=== PATIENT | male | born 1965 | race Caucasian/White ===

== ENCOUNTER 2020-12-31 23:00 | Emergency (ER) | payer OTHER, SELFPAY ==
--- NOTE | ~2020-12-31 | CT_ITS ---
EXAMINATION: CT abdomen pelvis wo con DATE: 01/01/2021 00:08 INDICATION: Scrotal swelling, abdominal pain TECHNIQUE: Computed tomography (CT) of the abdomen and pelvis was performed without intravenous contr ast. Automated exposure control and iterative reconstruction technique were employed. Exam dose: 759 .69 mGy-cm total exam DLP. COMPARISON: None. FINDINGS: There is bibasilar discoid atelectasis and/or scarring. Normal heart size. No pericardial or pleural effusion. The gallbladder is distended. No gallbladder wall thickening or pericholecystic fluid or fat strandin g. No bile duct or pancreatic duct dilatation. No hepatic, pancreatic, splenic, and adrenal or renal space-occupying mass lesion is detected. Normal caliber of the abdominal aorta. There are shotty nonenlarged periaortic and aortocaval lymph nodes. There is a 6.5 mm appendicolith at the base of the appendix but the appendix is not dilated, there is no thickening of the wall of the appendix and there is no surrounding periappendiceal thickening or fluid. There is minimal diverticulosis of the colon. No CT evidence of diverticulitis. The prostate gland and urinary bladder and seminal vesicles are unremarkable. No bowel obstruction, bowel wall thickening, pneumatosis or intraperitoneal free air. There is prominent soft tissue thickening of the scrotum, penis, subcutaneous fat soft tissue/edema i nfiltration throughout the scrotum. There is extensive subcutaneous emphysema of the right scrotal sa c, extending into the right perineum. There is subcutaneous fat soft tissue/edema infiltration of the medial right buttock fat. Subcutaneous edema extends into the suprapubic area. 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 There is a recent displaced posterolateral right ninth and 10th rib fractures. Degenerative spurring of the lower thoracic spine. No suspicious osteolytic or osteoblastic lesions a re noted. IMPRESSION: Jenny's gangrene, including subcutaneous emphysema involving the right scrotal and pe rineal areas, extensive soft tissue thickening and subcutaneous edema of the scrotum, penis, extendin g into the right perineum and right buttock Appendicolith at base of appendix without additional evidence for appendicitis Minimal diverticulosis of the colon; no CT evidence of diverticulitis Reviewed, dictated and finalized at [facility] Reviewed, dictated and finalized at [facility]. IMPRESSION: Jenny's gangrene, including subcutaneous emphysema involving th e right scrotal and perineal areas, extensive soft tissue thickening and subcut aneous edema of the scrotum, penis, extending into the right perineum and right buttock Appendicolith at base of appendix without additional evidence for appendicitis Minimal diverticulosis of the colon; no CT evidence of diverticulitis
[2020-12-31 23:08] VITALS: BP 74/47; PULSE 120; RESP 20; TEMP 35.9; O2SAT 100
[2020-12-31 23:28] VITALS: BP 80/59; PULSE 113; RESP 22; O2SAT 98
[2020-12-31 23:31] VITALS: PULSE 110; RESP 23
--- NOTE | 2020-12-31 23:45 | ED.FEVER ---
HPI - Fever General Chief Complaint: Fever Stated Complaint: fever Time Seen by Provider: 12/31/20 23:32 Source: RN notes reviewed History of Present Illness HPI Narrative: Patient presents to emergency department from home for fever. Patient states he began to run a fever approximately 6 days ago. States temperatures up the 103. He states that he also noticed approximately 4 days ago he was having swelling of his scrotum as well as a hemorrhoid in his buttocks he states that these are progressively worsened with some drainage down by his scrotum patient states he went to urgent care today at [place] and was placed on 2 antibiotics which he has not filled yet he denies any chest pain shortness of breath. He denies any history of diabetes Related Data Home Medications Medication Instructions Recorded Confirmed colchicine 0.6 mg tablet 0.6 mg PO DAILY PRN 03/10/20 11/22/20 Allergies Allergy/AdvReac Type Severity Reaction Status Date / Time No Known Allergies Allergy Verified 12/31/20 23:30 Review of Systems Review of Systems: Gen.: Reports fever Eyes: Denies eye pain or visual change ENT: Denies congestion Respiratory: Denies shortness of breath or cough CV: Denies chest pain or palpitations GI: Reports lower abdominal pain and rectal pain reports scrotal swelling and erythema Musculoskeletal: Denies back pain or muscle pain Neuro: Denies numbness, tingling, weakness or focal weakness Skin: Denies rash Except as documented, all other systems reviewed and negative [facility] Past Medical History Medical History Allergies Erectile dysfunction Gout High blood cholesterol HTN (hypertension) Osteoporosis Surgical History Surgical History H/O wrist surgery right wrist History of ankle surgery left ankle Lower extremity surgery planned left tibia Family History Family History Mother Family history of glaucoma Hypertension Grandparent Family history of Parkinson's disease Father Family history of lung cancer, Onset Age: 62 Grandparent Diabetes mellitus Hypertension Grandparent Dementia Heart disease Other Family history of malignant neoplasm Social History Social History Smoking status: Light tobacco smoker Alcohol intake: current Exam Narrative: APPEARANCE: No acute distress, nontoxic, resting in bed EYES: EOMI HEENT: Normocephalic, atraumatic, OMM RESPIRATORY: No respiratory distress Clear to auscultation bilaterally with no rhonchi wheezing or rales. CARDIOVASCULAR: Regular rate and rhythm without murmurs rubs or gallops. ABDOMINAL: Soft, nondistended, tender palpation right lower quadrant left lower quadrant no tenderness right upper quadrant left upper quadrant no rebound or guarding, periumbilical hernia that is soft and easily reducible Rectum: Erythema around the rectum extending to the perineum area with open wound draining purulent material : Extensive swelling and erythema of the scrotum extending down into the perineum area with open wounds but tests MUSCULOSKELETAl: Moves all extremities. No clubbing, cyanosis or edema. NEURO: Awake and alert. Following commands, speech normal, no focal deficits SKIN:: Warm, dry. 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 Marcano for urology at [facility] agrees with plan for transfer and recommends transfer to the ED with patient to go to the OR tonight in agreement with clindamycin vancomycin Discuss
[2020-12-31 23:47] VITALS: PULSE 112
--- NOTE | 2020-12-31 23:51 | PC.NURSE ---
Patient taken to CT via stretcher.
[2020-12-31 23:57] LABS: Estimated CRCL calculation 11 ml/min; Estimated Glomerular Filt Rate 7
[2021-01-01] VITALS (11 sets, daily range): BP systolic 94–120; BP diastolic 59–84; PULSE 103–112; RESP 20–24; TEMP 37.1; O2SAT 98–100
[2021-01-01] LABS: Hematocrit 38.9 % (42.0-52.0); Hemoglobin 13.1 g/dL (14.0-18.0); Mean Corpuscular HGB Conc 33.7 g/dl (32-36); Mean Corpuscular Hemoglobin 30.9 pg (26-34); Mean Corpuscular Volume 91.7 fl (80-100); Mean Platelet Volume 10.5 fl (7.4-10.4); Platelet Count Result 352 k/mm3 (150-375); Red Blood Count 4.24 M/mm3 (4.6-6.20); Red Cell Distribution Width 13.6 % (11.5-14.5); White Blood Count 20.2 K/mm3 (4.5-10.0)
[2021-01-01 00:14] LABS: Lactic Acid Reflex 2.6 mmol/L (0.7-2.1)
[2021-01-01 00:15] LABS: Alanine Aminotransferase 24 U/L (4-50); Albumin Level 3.8 g/dL (3.5-5.1); Alkaline Phosphatase 168 U/L (38-126); Anion Gap 22 mmol/L (8-16); Aspartate Amino Transferase 23 U/L (17-59); Bilirubin,Total 1.2 mg/dL (0.2-1.3); Blood Urea Nitrogen 62 mg/dL (9-20); Calcium 9.6 mg/dL (8.4-10.2); Carbon Dioxide 15 mmol/L (22-30); Chloride 93 mmol/L (98-107); Estimated CRCL calculation 11 ml/min; Estimated Glomerular Filt Rate 7; Glucose 139 mg/dL (65-110); INR 1.3; Potassium 3.5 mmol/L (3.4-5.0); Prothrombin Time 15.9 Seconds (11.1-14.7); Sodium 130 mmol/L (137-145)
[2021-01-01 00:16] LABS: Partial Thromboplastin Time 31.8 SECONDS (22.3-36.8)
[2021-01-01 00:18] LABS: Band Neutrophils Percent 10 % (0-6); Eosinophils Percent Manual 2 % (0-4); Monocytes Absolute Manual 1.01 K/mm3 (0.1-0.90); Monocytes Percent Manual 5 % (3-9); Neutrophils Absolute Manual 17.97 K/mm3 (1.3-6.7); Neutrophils Percent Manual 79 % (46-73); Platelet Estimate Adequate (Adequate); Total Cells Counted 100
[2021-01-01 00:19] LABS: Burr Cells 1+ (NORMAL); Large Platelets Present; Poikilocytosis 1+ (NORMAL)
[2021-01-01] MEDS: CLINDAMYCIN 900 MG/D5W 50 ML 900 MG/50 ML PIGGYBACK 50 MG IVPB (00:49)
[2021-01-01 02:56] LABS: Reflex Lactic Acid Yes or No Add Lactic
== END 2021-01-01 01:30 | disposition short-term general hospital (02) ==
PROVIDERS: Emergency Provider Emergency Medicine; PCP Internal Medicine
DX: N49.3 Fournier gangrene (principal); R65.20 Severe sepsis without septic shock; N17.9 Acute kidney failure, unspecified; E78.00 Pure hypercholesterolemia, unspecified; I10 Essential (primary) hypertension; M10.9 Gout, unspecified; M81.0 Age-related osteoporosis without current pathological fracture; F17.200 Nicotine dependence, unspecified, uncomplicated
CPT/HCPCS: 36415; 74176; 80053; 83605; 85025; 85610; 85730; 87040; 87070; 87075; 87076; 87205; 96365; 96367; 99291; J0743; J3370; J7030

== ENCOUNTER 2021-11-23 08:19 | Outpatient (CLI) | payer OTHER, SELFPAY ==
--- NOTE | ~2021-11-23 | XR_ITS ---
EXAMINATION: XR ankle LT min 3V DATE: 11/23/2021 08:42 INDICATION: Left ankle pain. TECHNIQUE: 4 views of left ankle were obtained. COMPARISON: None. FINDINGS: Bone alignment is normal. No acute fracture. There is fixation of medial malleolus with 2 l ag screws. There are small fragments of chronic heterotopic ossification distal to medial and lateral malleoli. There is mild midfoot osteoarthritis. There are enthesophytes at the posterior and plantar aspects of calcaneal tuberosity. IMPRESSION: 1. Mild midfoot osteoarthritis. Reviewed, dictated and finalized at location [facility].
== END 2021-11-23 08:20 ==
LOC: MICIMG 08:22
PROVIDERS: PCP Internal Medicine; Visit Provider Internal Medicine
DX: M19.072 Primary osteoarthritis, left ankle and foot (principal)
CPT/HCPCS: 73610

== ENCOUNTER 2025-02-22 08:48 | Outpatient (CLI) | payer OTHER, SELFPAY ==
--- OUTSIDE RECORDS SUMMARY | 2025-02-22 09:28 | XMS_ITS | Encounter Summary ---
Author Organization [facility] Address [address] [place] [address] Care Team Providers Care Sprayer Machine Name Role Phone Brian Miller DO Primary Care Provider Encounter Details Date Type Department Care Team (Late st Contact Info) Description 02/03/2021 Telephone [facility] [address] [place] [address] Raman Swain MD [address] [facility] [place] [place] [id number] Social History Tobacco Use Types Packs/Day Years Used Date Smoking Tobacco: Former Cigarettes Smokeless Tobacco: Never Alcohol Use Standard Drinks/Week Comments Not Currently 0 (1 standard drink = 0.6 oz pur e alcohol) Sex and Gender Information Value Date Recorded Sex Assigned at Not on file Legal Sex Male 12:27 AM CDT Gender Identity Not on file Sexual Orientation Not on file COVID-19 Exposure Response Date Recorded In the last month, have you been in contact with someone who was confirmed or suspected to have Coronavirus / COVID-19? No / Unsure 01/24/2021 2:33 PM CDT documented as of this encounter Functional Status * Is person deaf or have serious hearing difficulty? Answer Date of Assessment Author No 01/01/2021 6:54 AM CDT Orlando Garza RN * Is person blind or have serious difficulty seeing? Answer Date of Assessment Author No 01/01/2021 6:54 AM CDT Orlando Garza RN * Does person have serious difficulty walking/climbing stairs? Answer Date of Assessment Author No 01/01/2021 6:54 AM CDT Orlando Garza RN * Does person have difficulty dressing/bathing? Answer Date of Assessment Author No 01/01/2021 6:54 AM CDT Orlando Garza RN * Does person have difficulty doing errands alone? Answer Date of Assessment Author No 01/01/2021 6:54 AM CDT Orlando Garza RN documented as of this encounter Mental Status * Does person have difficulty concentrating/remembering/making decisions? Answer Entry Date Author No 01/01/2021 6:54 AM CDT Orlando Garza RN documented in this encounter Miscellaneous Notes * Telephone Encounter - Fabi Stephens - 02/03/2021 2:21 PM CDT I contacted patient to schedule surgery. He will call me back to schedule. NM documented in this encounter Plan of Treatment Not on file documented as of this encounter Visit Diagnoses Not on filedocumented in this encounter Care Teams Sprayer Machine Relationship Specialty Start Date End Date Brian Miller DO PCP - General Internal Medicine 01/16/21 documented as of this encounter
--- OUTSIDE RECORDS SUMMARY | 2025-02-22 09:28 | XMS_ITS | Clinical Summary ---
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 Gender Identity Not on file Sexual Orientation Not on file Plan of Treatment Health Maintenance Due Date Last Done Comments Hepatitis B Immunization (1 of 3 - 19+ 3-dose series) 07/29/1986 Cologuard 07/29/2012 Colonoscopy 07/29/2012 Colorectal Cancer Screening 07/29/2012 Immunochemical Fecal Occult Blood 07/29/2012 Pneumococcal Immunization (5 0+ years) (1 of 1 - PCV) 07/29/2017 Zoster Immunization (2 of 2) 02/04/2021 12/10/2020 Influenza Immunization (#1) 01/04/202502/04, 02/01/2020, 03/13/2019 SARS-COV-2 Immunization ( - season) 2025 03/28/2021, 08/28/2020, 08/06/2020 Respiratory Syncytial Virus (RSV) Immunization (Adult) (1 - 1-dose 75+ series) 07/29/2042 DTaP/Tdap/Td Immunization Discontinued 12/10/2020 TdaP Immunization Completed 12/10/2020 Hepatitis C Virus (HCV) Screening Completed 01/09/2021 Human Papillomavirus (HPV) Immunization Aged Out No longer eligible based on patient's age to complete this topic Meningococcal Immunization (ACWY) Aged Out No longer eligible based on patient's age to complete this topic Rotavirus Immunization Aged Out No lo nger eligible based on patient's age to complete this topic
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
--- OUTSIDE RECORDS SUMMARY | 2025-02-22 09:28 | XMS_ITS | Encounter Summary ---
Author Organization [facility] Health Address [address] [facility] [address] Care Team Providers Care Supervisor Putty And Caluking Name Role Phone Brian Miller DO Primary Care Provider Encounter Details Date Type Department Care Team (Late st Contact Info) Description 03/09/2021 Telephone [facility] [address] [place] [address] Raman Swain MD [address] [place] [id number] Social History Tobacco Use Types Packs/Day Years [...] have Coronavirus / COVID-19? No / Unsure 03/07/2021 3:12 PM CDT documented as of this encounter Functional Status * Is person deaf or have serious hearing difficulty? Answer Date of Assessment Author No 03/02/2021 11:37 AM CDT Trinidad Jimenez RN * Is person blind or have serious difficulty seeing? Answer Date of Assessment Author No 03/02/2021 11:37 AM CDT Trinidad Jimenez RN * Does person have serious difficulty walking/climbing stairs? Answer Date of Assessment Author No 03/02/2021 11:37 AM CDT Trinidad Jimenez RN * Does person have difficulty dressing/bathing? Answer Date of Assessment Author No 03/02/2021 11:37 AM CDT Trinidad Jimenez RN * Does person have difficulty doing errands alone? Answer Date of Assessment Author No 03/02/2021 11:37 AM CDT Trinidad Jimenez RN documented as of this encounter Mental Status * Does person have difficulty concentrating/remembering/making decisions? Answer Entry Date Author No 03/02/2021 11:37 AM Trinidad Alvarado RN documented in this encounter Miscellaneous Notes * Telephone Encounter - Fabi Stephens - 03/09/2021 9:10 AM CDT Myla MCGILL from [facility] called to inform the office that Mr. Muniz was being discharged today. He has been set up with wound care supplies. Myla can be reached at [phone]. NM documented in this encounter Plan of Treatment Not on file documented as of this encounter Visit Diagnoses Not on filedocumented in this encounter Care Teams Supervisor Putty And Caluking Relationship Specialty Start Date End Date Brian Miller DO PCP - General Internal Medicine 01/16/21 documented as of this encounter
--- OUTSIDE RECORDS SUMMARY | 2025-02-22 09:28 | XMS_ITS | Clinical Summary ---
Author Organization [facility] Master [address] [facility] Address [address] [address] Care Team Providers Care Computer Numeric Control Setter Name Role Phone Brian Miller DO Primary Care Provider Allergies No known active allergies Medications colchicine (MITIGARE) 0.6 mg capsule Take 0.6 mg by mouth daily. Active lisinopriL (PRINIVIL) 20 mg tabletIndications :Benign hypertension Take 1 Tablet (20 mg) by mouth daily. 90 Tablet 1 0 Active omeprazole (PriLOSEC) 10 mg Capsule, Delayed Release(E.C.)Estrellita cations:Gastroeso phageal reflux disease, esophagitis presence not specified Take 1 Capsule (10 mg) by mouth daily. 90 Capsule 1 0 Active sertraline (ZOLOFT) 50 mg tabletIndications :Generalized anxiety disorder Take 1 Tablet (50 mg) by mouth daily. 90 Tablet 1 0 Active atorvastatin (LIPITOR) 20 mg tablet Take 20 mg by mouth daily. 1 Active sildenafiL, pulm.hypertension , (REVATIO) 20 mg Tablet TAKE 3 TABLETS BY MOUTH EVERY DAY NEEDED. MAX DOSE IS 5 TABS IN 24 HOURS. 1 Active Vascepa 1 gram Capsule Take 1 Capsule by mouth daily. 1 Active buPROPion HCL (WELLBUTRIN SR) 150 mg Sustained Release 12 hour tablet Take 1 Tablet by mouth daily. 1 Active nabumetone (RELAFEN) 500 mg tabletIndications :Rib pain on right side Take 1 Tablet (500 mg) by mouth 2 times daily as needed for Pain. 30 Tablet 1 Active Active Problems Problem Noted Date Diagnosed Date Tobacco use 04/15/2019 Immunizations Immunization Administration Dates Next Due (ADACEL/BOOSTRIX)(10 YR UP) TDAP VACCINE, 0.5ML, IM 12/09/2020 (PFIZER)(12 YR UP) COVID-19 VACCINE - EMERGENCY USE AUTHORIZATION, MRNA, [id number](PF) 30 MCG/0.3 ML IM SUSP 08/28/2020,08/06/2020 (SHINGRIX)(50 YRS UP) ZOSTER VACCINE RECOMBINANT, 0.5 ML, IM 12/09/2020 INFLUENZA VACCINE QUADRIVALENT 3 YR UP PF IM INFLUENZA VACCINE QUADRIVALENT 6 MOS UP IM 03/13 INFLUENZA VACCINE QUADRIVALENT 6 MOS UP PF IM ,02/01/2020 Family History Medical History Relation Name Comments Lung Cancer Father Seth Muniz Heart Disease Maternal Grandfather Francois Rash Hypertension Maternal Grandfather Francois Rash Hypertension Maternal Grandmother [place] Rash Glaucoma Mother Mary Muniz Skin Cancer Mother Mary Muniz Hypertension Paternal Grandfather Miguel Muniz Other Paternal Grandfather Miguel Muniz Jose on's Disease Diabetes Paternal Grandmother Gladis Muniz Hypertension Paternal Grandmother Gladis Muniz Arthritis-rheumatoid Sister Relation Name Status Comments Father Seth Cristy Maternal Grandfather Francois Rash Maternal Grandmother [place] Rash Mother Mary Muniz Alive Paternal Grandfather Miguel Muniz Paternal Grandmother Gladis Muniz Sister Social History Tobacco Use Types Packs/Day Years Used Date Smoking Tobacco: Some Days Cigarettes 0.1 20 Smokeless Tobacco: Never Alcohol Use Standard Drinks/Week Comments Yes 0 (1 standard drink = 0.6 oz pur e alcohol) Sex and Gender Information Value Date Recorded Sex Assigned at Male 01/29/2024 11:51 AM CDT Legal Sex Male 8:09 AM [employer] Gender Identity Male 01/29/2024 11:51 AM CDT Sexual Orientation Straight 01/29/2024 11 :51 AM CDT Last Filed Vital Signs Vital Sign Reading Time Taken Comments Blood Pressure 136/86 07/24/2024 2:14 PM CDT Pulse 105 12/16/2020 2:00 PM CDT Temperature 36.9 C (98.5 F) 12/16/2020 2:00 PM CDT Respiratory Rate 18 12/16/2020 2:00 PM CDT Oxygen Saturation 97% 12/16/2020 2:00 PM CDT Inhaled Oxygen Concentration - - Weight 94.8 kg (209 lb) 07/24/2024 2:14 PM CDT Height 170.2 cm (5' 7) 07/24/2024 2:14 PM CDT Body Mass Index 32.73 07/24/2024 2:14 PM CDT Plan of Treatment Health Maintenance Due Date Last Done Comments Pre-Diabetes and Diabetes Screening 1965 HEPATITIS B VACCINES (1 of 3 - 19+ 3-dose series) 07/29/1986 COLORECTAL SCREENING 07/29/2012 Colorectal Cancer Screening 07/29/2012 FIT-DNA Q 3 years 07/29/2012 FIT/FOBT Q 1 year 07/29/2012 Flex Sig/CT Colonography Q 5 years 07/29/2012 ZOSTER VACCINE (2 of 2) 02/03/2021 12/09/2020 INFLUENZA VACCINE (#1) 2024 , 02/16/2022, 03/03/2021, Additional history exists COVID-19 Vaccine (2024-2 6 season) 2025 03/28/2021, 08/28/2020, 08/06/2020 DTAP/TDAP/TD VACCINES (3 - T d or Tdap) 01/03/2034 01/04/2024, 12/09/2020 Insurance [employer] OPEN ACCESS Care Teams Computer Numeric Control Setter Relationship Specialty Start Date End Date Brian Miller DO [address] [facility] [address] [place] [id number] PCP - General Internal Medicine 08/04/20
--- OUTSIDE RECORDS SUMMARY | 2025-02-22 09:28 | XMS_ITS | Encounter Summary ---
Author Organization [facility] Health Address [address] [facility] [place] [address] Care Team Providers Care Tool And Die Maker/Designer Name Role Phone Brian Miller DO Primary Care Provider Encounter Details Date Type Department Care Team (Late st Contact Info) Description 01/05/2024 Ophth Exam [facility] [address] [place] [address] Brian Keating MD [address] [place] [address] Social History Tobacco Use Types Packs/Day Years [...] you are drinking? Patient does not drink Q3: How often do you have si x or more drinks on one occasion? Never 01/04/2024 Overall Financial Resource Strain (CARDIA) Answe r Date Recorded How hard is it for you to pa y for the very basics like food, housing, medical care, and heating? Patient declined 01/04/2024 [facility] of Occupat ional Health - Occupational Stress [...] place to sleep or slept in a long-term (including now)? Patient declined 01/04/2024 Sex and Gender Information Value Date Recorded Sex Assigned at Not on file Legal Sex Male 12:27 AM CDT Gender Identity Not on file Sexual Orientation Not on file documented as of this encounter Functional Status * Is person deaf or have serious hearing difficulty? Answer Date of Assessment Author No 01/04/2024 11:46 PM CDT Ananya Whittaker, JANETTE * Is person blind or have serious difficulty seeing? Answer Date of Assessment Author No 01/04/2024 11:46 PM CDT Ananya Whittaker, JANETTE * Does person have serious difficulty walking/climbing stairs? Answer Date of Assessment Author No 01/04/2024 11:46 PM CDT Ananya Whittaker, JANETTE * Does person have difficulty dressing/bathing? Answer Date of Assessment Author No 01/04/2024 11:46 PM CDT Ananya Whittaker RN * Does person have difficulty doing errands alone? Answer Date of Assessment Author No 01/04/2024 11:46 PM CDT Ananya Whittaker RN documented as of this encounter Mental Status * Does person have difficulty concentrating/remembering/making decisions? Answer Entry Date Author No 01/04/2024 11:46 PM CDT Ananya Whittaker RN documented in this encounter Plan of Treatment Not on file documented as of this encounter Visit Diagnoses Not on filedocumented in this encounter Care Teams Tool And Die Maker/Designer Relationship Specialty Start Date End Date Brian Miller DO PCP - General Internal Medicine 01/16/21 documented as of this encounter
--- OUTSIDE RECORDS SUMMARY | 2025-02-22 09:28 | XMS_ITS | Encounter Summary ---
Author Organization [facility] Health Address [address] [place] [address] Care Team Providers Care Beverage Specialist Name Role Phone Brian Miller DO Primary Care Provider Encounter Details Date Type Department Care Team (Late st Contact Info) Description 02/28/2021 Telephone [facility] [address] [place] [address] Raman Swain MD [address] [place] [phone] Social History Tobacco Use Types Packs/Day Years [...] have Coronavirus / COVID-19? No / Unsure 02/07/2021 2:46 PM CDT documented as of this encounter Functional Status * Functional and Cognitive Status Question Answer Date of Assessment Author Is person deaf or have lalo us hearing difficulty? No 03/02/2021 11:37 AM CDT Benja Jimenez RN Is person blind or have seri ous difficulty seeing? No 03/02/2021 11:37 AM BETTYT Benja Jimenez RN Does person have serious difficulty walking/climbing stairs? No 03/02/2021 11:37 AM BETTYT Benja Jimenez RN Does person have difficulty dressing/bathing? No 03/02/2021 11:37 AM BETTYT Benja Jimenez RN Does person have difficulty doing errands alone? No 03/02/2021 11:37 AM CDT Makenzie Jimenez ret, RN Does person have difficulty concentrating/remembering/makin g decisions? No 03/02/2021 11:37 AM BETTYT Benja Jimenez RN * Is person deaf or have serious hearing difficulty? Answer Date of Assessment Author No 01/01/2021 6:54 AM Orlando Mendoza RN * Is person blind or have serious difficulty seeing? Answer Date of Assessment Author No 01/01/2021 6:54 AM Orlando Mendoza RN * Does person have serious difficulty walking/climbing stairs? Answer Date of Assessment Author No 01/01/2021 6:54 AM Orlando Mendoza RN * Does person have difficulty dressing/bathing? Answer Date of Assessment Author No 01/01/2021 6:54 AM Orlando Mendoza RN * Does person have difficulty doing errands alone? Answer Date of Assessment Author No 01/01/2021 6:54 AM Orlando Mendoza RN documented as of this encounter Mental Status * Does person have difficulty concentrating/remembering/making decisions? Answer Entry Date Author No 01/01/2021 6:54 AM Orlando Mendoza RN documented in this encounter Miscellaneous Notes * Telephone Encounter - Fabi Stephens - 02/28/2021 1:39 PM CDT Chaka @ [facility] [employer], [employer] for cpt codes [id number], [phone], [id number], [phone] if both doctor and facility is in network, call ref-Chaka C. 02/28/21. documented in this encounter Plan of Treatment Not on file documented as of this encounter Visit Diagnoses Not on filedocumented in this encounter Care Teams Beverage Specialist Relationship Specialty Start Date End Date Brian Miller DO PCP - General Internal Medicine 01/16/21 documented as of this encounter
[2025-02-22 13:11] LABS: Anion Gap 10 mmol/L (4-12); Blood Urea Nitrogen 19 mg/dL (9-20); Calcium 9.2 mg/dL (8.4-10.2); Carbon Dioxide 27 mmol/L (22-30); Chloride 102 mmol/L (98-107); Cholesterol 205 mg/dL (0-200); Estimated Glomerular Filt Rate 58; Glucose 98 mg/dL (65-110); HDL Direct 46 mg/dL; Potassium 4.3 mmol/L (3.4-5.0); Sodium 139 mmol/L (137-145); Triglycerides 336 mg/dL (<150); Uric Acid 9.4 mg/dL (3.5-8.5)
[2025-02-22 13:16] LABS: Add Urine Microscopic? YES; Appearance Urine Cloudy (Clear); Glucose Urine UA Negative (Negative); Leukocyte Esterase Ur Negative LEU/UL (Negative); Nitrate Urine Negative (Negative); Non Pathogenic Casts 0-2; Specific Grav Ur 1.018 (1.001-1.035)
== END 2025-02-22 08:49 | disposition home or self-care (01) ==
LOC: ANHGOSHLAB 08:49
PROVIDERS: PCP Internal Medicine; Visit Provider Internal Medicine
DX: N28.9 Disorder of kidney and ureter, unspecified (principal); I10 Essential (primary) hypertension; E78.2 Mixed hyperlipidemia
CPT/HCPCS: 36415; 80048; 80061; 81001; 82172; 84550